=== PATIENT | female | born 2000 | race Caucasian/White ===

== ENCOUNTER 2025-02-14 17:35 | Emergency (ER) | payer MEDICAID ==
[~2025-02-14] VITALS: Ht 162.6 cm; Wt 46.5 kg
[2025-02-14 18:37] LABS: BASOPHILS # (AUTO) 0.1 X10'3 (0-0.2); BASOPHILS % (AUTO) 0.5 % (0-1); EOSINOPHILS # (AUTO) 0.3 X10'3 (0-0.9); EOSINOPHILS % (AUTO) 2.6 % (0-6); HEMATOCRIT 38.8 % (35.0-45.0); LYMPHOCYTES # (AUTO) 2.1 X10'3 (1.1-4.8); LYMPHOCYTES % (AUTO) 18.5 % (21-51); MEAN CORPUSCULAR HEMOGLOBIN 32.8 PG (27.0-31.0); MEAN CORPUSCULAR HGB CONC 33.6 g/dL (33.0-36.5); MEAN CORPUSCULAR VOLUME 97.6 FL (78-98); MEAN PLATELET VOLUME 8.5 FL (7.4-10.4); MONOCYTES # (AUTO) 0.8 X10'3 (0-0.9); MONOCYTES % (AUTO) 6.8 % (2-12); NEUTROPHILS % (AUTO) 71.6 % (42-75); PLATELET COUNT 227 X10'3 (140-440); RED BLOOD COUNT 3.97 X10'6 (4.20-5.60); RED CELL DISTRIBUTION WIDTH 12.9 % (11.5-14.5); WHITE BLOOD COUNT 11.1 X10'3 (4.5-11.0)
[2025-02-14 18:55] VITALS: TEMP 97.8
[2025-02-14 19:04] LABS: ALANINE AMINOTRANSFERASE 27 U/L (12-78); ALBUMIN 4.5 G/DL (3.4-5.0); ALKALINE PHOSPHATASE 54 IU/L (46-116); ANION GAP 13 (8-16); ASPARTATE AMINO TRANSFERASE 19 U/L (10-37); BILIRUBIN,TOTAL 0.4 MG/DL (0.1-1.0); BLOOD UREA NITROGEN 10 MG/DL (7-18); BUN/CREATININE RATIO 18.9 (10.0-20.0); CALCIUM 9.3 MG/DL (8.5-10.1); CHLORIDE 105 MMOL/L (99-107); CREATININE 0.53 MG/DL (0.40-0.90); GLUCOSE 100 MG/DL (70-104); POTASSIUM 4.2 MMOL/L (3.5-5.1); SODIUM 143 MMOL/L (135-145); TOTAL CARBON DIOXIDE 25.4 MMOL/L (24-32); TOTAL PROTEIN 8.9 G/DL (6.4-8.2); eCRCL 118 ML/MIN; eGFR > 90 ML/MIN
[2025-02-14 19:10] LABS: LIPASE 31 U/L (16-77)
[2025-02-14 19:11] LABS: BETA HCG,QUANTITATIVE < 1.0 mIU/ml
[2025-02-14] MEDS: morphine 4 MG/ML inj SYRINge IV ONE (19:31)
[2025-02-14] MEDS: ondansetron/PF 4mg/2ml inj IV PRN (19:31)
[2025-02-14] MEDS: ketorolac trometh 15mg/ml vial 15 MG/ML ML IV ONE (20:07)
[2025-02-14] MEDS ORDERED: IBUP-1986 PO (20:21)
[2025-02-14 20:31] VITALS: BP 109/73; PULSE 70; RESP 16; O2SAT 100
== END 2025-02-14 20:38 | disposition home or self-care (01) ==
LOC: ER 17:37
DX: N93.9 Abnormal uterine and vaginal bleeding, unspecified (principal); R10.30 Lower abdominal pain, unspecified
CPT/HCPCS: 36415; 76856; 80053; 83690; 84702; 85025; 93976; 96374; 96375; 99285; J1885; J2270; J2405

== ENCOUNTER 2025-09-29 13:56 | Emergency (ER) | payer MEDICAID ==
[~2025-09-29] VITALS: Ht 162.6 cm; Wt 47.1 kg
[~2025-09-29 13:56] MED LIST: IBUP-1986 PO
[2025-09-29 14:10] VITALS: BP 135/81; PULSE 145; RESP 18; TEMP 99.5; O2SAT 100
--- NOTE | 2025-09-29 14:16 | Physician Documentation ---
History of Present Illness Chief Complaint: Abdominal Pain Stated Complaint: ABDOMINAL PAIN HPI Very pleasant 25-year-old female that presents to the emergency department for evaluation of heavy menses. Patient reports that she believes that she started her menstruation last night that it was accompanied by very heavy bleeding that has continued throughout the night into the morning accompanied by lower abdominal pain. Patient reports that she has PCOS and has previously had a ruptured ovarian cyst with a very similar presentation. Patient reports that s he is concerned that that is what is happening now. Patient reports he took a test yesterday that was negative. Patient denies fever chills nausea vomiting diarrhea at this time. Medication Reconciliation Allergies: Coded Allergies: No Known Allergies (Unverified , 02/14/25) Scheduled Ibuprofen (Ibuprofen), 1 TAB PO Q8H Review of Systems ROS As stated above in the HPI, otherwise all systems are reviewed and negative. Physical Exam Physical Exam VITALS: Reviewed and as above. GENERAL: Alert, no apparent distress. HEENT: Normocephalic, atraumatic, PERRL, EOMI, dry mucosa, no erythema RESPIRATORY: Lungs clear, normal breath sounds, no respiratory distress. CHEST: No accessory muscle use, no retractions CV: Regular rate, rhythm, no edema, no murmur, No: JVD GI: Soft, mild tenderness with palpation, bowels sounds present, no rebound, guarding, or rigidity BACK: No CVA tenderness, or swelling MUSCULOSKELETAL No deformities, no edema SKIN: Warm and dry, no rash NEURO: Oriented x4, No motor or sensory deficit PSYCH: Normal mood and affect, no agitation Medical Decision Making Additional information obtaine: other Findings Patient: 25-year-old female Presenting Complaint: Abdominal pain with olxnfrb-[id number]-[id number] menstrual bleeding Relevant History: PCOS, prior uncomplicated ruptured ovarian cyst Current Episode: Heavier menstrual bleeding with abdominal cramping; negative test; positive UTI; declined abdominal ultrasound and further diagnostics Assessment and Clinical Reasoning: Hemodynamic stability confirmed; no signs of hypovolemia or instability. Acute abnormal uterine bleeding (AUB): Etiology likely multifactorial, including PCOS-related ovulatory dysfunction and possible anovulation. No evidence of structural pathology or acute gynecologic emergency (e.g., ectopic , torsion, or complicated cyst rupture). UTI: Uncomplicated, confirmed by urinalysis. Imaging: Patient declined ultrasound; per ACOG and AAFP guidelines, imaging is indicated if structural etiology is suspected or symptoms persist, but may be deferred in stable patients with low suspicion and patient preference. Endometrial sampling: Not indicated at this time given age <45, absence of chronic unopposed estrogen exposure, and lack of persistent/refractory bleeding. Management: AUB: Outpatient management appropriate given stability and patient preference. NSAIDs (ibuprofen) and acetaminophen recommended for pain and to reduce menstrual bleeding. Hormonal therapy (e.g., combined oral contraceptives, progestins, tranexamic acid) discussed but deferred per patient preference. UTI: Empiric oral antibiotics recommended as first-line therapy for uncomplicated cystitis (e.g., nitrofurantoin 5 days, TMP-SMX 3 days, or single- dose fosfomycin), per ACP and AAFP guidelines. NSAIDs may be used adjunctively for symptom relief but are inferior to antibiotics for resolution and may increase risk of complications if used alone. Follow-up: Patient instructed to monitor for worsening bleeding, pain, or signs of infection. Advised to return for persistent, severe, or refractory symptoms, or if unable to control pain with OTC medications. Will follow up with PCP or return to ED as needed. Disposition: Safe for discharge: Lives close to hospital, understands return precautions, and is comfortable with outpatient management. Shared decision-making documented: Patient declined further diagnostics and imaging after risks/benefits discussion. References: Management of acute AUB: ACOG Committee Opinion, [employer]. UTI management: ACP recommendations, [place] review, meta-analysis. Imaging and diagnostic considerations: ACOG, AAFP, ACR Appropriateness Criteria. Differential Dx:Considerations: -Complete, -Incomplete, -Missed, Appendicitis, Bowel obstruction, Cholangitis, Ovarian cyst/torsion, Urinary obstruction, Urinary tract infection, Urolithiasis Departure Disposition: 01 HOME / SELF CARE / HOMELESS Impression: Primary Impression: Abdominal pain Additional Impressions: Menorrhagia Acute urinary tract infection Condition: Stable Discharge Instructions: Urinary Tract Infection, Adult, [id number]-[id number] Additional Instructions: Thank you for coming to the emergency department today. You were seen for abdomi nal pain and heavier than usual menstrual bleeding. You have a history of polycystic ovary syndrome (PCOS) and a previous uncomplicated ruptured ovarian cyst. Your test was negative, and your lab tests showed a urinary tract infection (UTI). All other tests were normal. What to expect: It is common for people with PCOS to have changes in their menstrual bleeding. You may continue to have some abdominal cramping and heavier bleeding for a short time. You have been prescribed antibiotics for your UTI. Please take them exactly as directed, even if you start to feel better. How to care for yourself at home: You can use acetaminophen (Tylenol) or ibuprofen (Advil, Motrin) for pain or cramping, as needed. Drink plenty of fluids and rest as much as possible. Monitor your bleeding. Some increase in flow is expected, but it should not be soaking through more than one pad or tampon per hour for several hours. Watch for signs of worsening infection, such as fever, chills, or back pain. When to seek medical attention: If your bleeding becomes very heavy (soaking more than one pad or tampon per hour for several hours) If you feel dizzy, weak, or faint If your pain becomes severe or is not helped by acetaminophen or ibuprofen If you develop fever, chills, or pain in your back or sides If you are unable to keep down fluids or medications Follow-up: Please follow up with your primary care provider for further evaluation and management of your PCOS and menstrual symptoms. If your symptoms worsen or do not improve, or if you are concerned at any time, return to the emergency department. We understand that these symptoms can be distressing, and we are here to support you. If you have any questions or concerns, do not hesitate to seek help. References Clinical Empathy as Emotional Labor in the Patient-Physician Relationship. Dougie Ulrich. TAJ. 2005;293(9):1100-6. doi:[email or web address]. These discharge instructions are designed to be clear, empathetic, and actionable, reflecting best practices in patient communication and supporting patient safety and understanding.[1] Would you like me to review the current evidence and recommendations for outpatient management and follow-up of abnormal uterine bleeding in patients with PCOS, including when to initiate hormonal therapy or further gynecologic evaluation? Referrals: NO PRIMARY CARE PROVIDER (PCP) Prescriptions Cephalexin*Monohydrate* (Keflex*) 500 Mg Capsule 1 CAP PO QID for 7 Days, #28 CAP Prov: GILMER TORRES 09/29/25 Education Educated: Patient Educated regarding: diagnosis, treatment, need for follow up Signature Scribe Signature: A Attestation: Scribed for Gilmer Torres by ADEN Martines . 09/29/25 16:42 GILMER TORRES Sep 29, 2025 14:16
[2025-09-29 14:52] LABS: MEAN PLATELET VOLUME 8.4 FL (7.4-10.4); RED CELL DISTRIBUTION WIDTH 13.5 % (11.5-14.5)
[2025-09-29 15:01] LABS: URINE HCG NEGATIVE (NEG)
[2025-09-29 15:06] LABS: CREATININE 0.69 MG/DL (0.40-0.90); TOTAL CARBON DIOXIDE 26.0 MMOL/L (24-32); eCRCL 91 ML/MIN; eGFR > 90 ML/MIN
[2025-09-29 15:09] LABS: UA COLLECTION TYPE CLN CATCH MIDSTREAM
[2025-09-29 15:15] LABS: SQUAMOUS EPITHELIAL CELL,UR FEW /LPF (FEW)
[2025-09-29] MEDS ORDERED: CEPH-585 PO (16:41)
[2025-09-29] MEDS: ibuprofen tablet 400 MG TABLET PO ONE (17:13)
== END 2025-09-29 17:23 | disposition home or self-care (01) ==
LOC: ER 13:56
DX: N92.0 Excessive and frequent menstruation with regular cycle (principal); N39.0 Urinary tract infection, site not specified; Z79.899 Other long term (current) drug therapy
CPT/HCPCS: 36415; 80053; 81001; 81025; 83690; 85025; 87088; 99284